=== PATIENT | male | born 1995 | race Caucasian/White ===

== ENCOUNTER → 2020-07-31 | Outpatient (CLI) | payer BC ==
[~2020-07-31] MED LIST: CIPRODEX 0.3%-7.5 ML OT; CYCLOBENZAPRINE10 MG PO; IBU800 MG PO; KEFLEX500 MG PO; MOTRIN600 MG PO; MOTRIN800 MG PO; NKHM; SEPTRA DS 800 M1 TAB PO; TYLENOL W/ CODE1 TAB PO; ZOFRAN ODT4 MG PO
[2020-07-31 14:17] LABS: HEMATOCRIT 42.1 % (42.0-52.0); MEAN CELL VOLUME 88.3 fl (80.0-94.0); MEAN CORPUSCULAR HGB 29.1 pg (27.0-31.0); RED BLOOD COUNT 4.77 10*6/uL (4.50-5.90); RED CELL DISTRI WIDTH 12.3 % (0-14.5); WHITE BLOOD COUNT 8.6 10*3/uL (4.8-10.8)
[2020-07-31 14:33] LABS: ALBUMIN 3.7 gm/dl (3.1-4.5); ALKALINE PHOSPHATASE 105 U/L (45-117); BUN 10 mg/dl (7-24); CHLORIDE 107 mmol/L (98-107); CHOLESTEROL 139 mg/dL (<200); CREATININE 0.98 mg/dL (0.70-1.30); HDL CHOLESTEROL 45 mg/dl (40-60); LDL CHOLESTEROL 79 mg/dL (9-159); POTASSIUM 4.2 mmol/L (3.5-5.1); SGOT/AST 10 IU/L (3-35); SGPT/ALT 18 U/L (12-78); SODIUM 140 mmol/L (136-145); TOTAL PROTEIN 7.7 gm/dL (6.4-8.2); TRIGLYCERIDES 75 mg/dl (<150); VLDL CHOLESTEROL 15 mg/dL (6-40)
[2020-07-31 15:20] LABS: VITAMIN D, 25-HYDROXY 25.4 ng/mL (30-100)
== END | disposition home or self-care (01) ==
LOC: LAB 13:43
PROVIDERS: ATTEND Family Medicine
DX: S82.892A Other fracture of left lower leg, initial encounter for closed fracture (principal); R53.83 Other fatigue; E55.9 Vitamin D deficiency, unspecified; D64.9 Anemia, unspecified; X58.XXXA Exposure to other specified factors, initial encounter; Y93.89 Activity, other specified; Y92.89 Other specified places as the place of occurrence of the external cause; Y99.8 Other external cause status